=== PATIENT | male | born 1965 | race Caucasian/White ===

== ENCOUNTER 2018-08-07 11:38 | Inpatient (IN) | payer BC ==
[2018-08-07 12:26] LABS: ADD MAN DIFF? NO
[2018-08-07 12:29] LABS: BASOPHIL # 0.1 10^3/ul (0.0-0.1); BASOPHILS % 0.8 % (0.0-2.0); EOSINOPHILS # 0.1 10^3/ul (0.0-0.5); EOSINOPHILS % 1.4 % (0.0-7.0); HEMATOCRIT 42.9 % (42.0-52.0); HEMOGLOBIN 14.6 g/dl (14.0-18.0); LYMPHOCYTES # 1.8 10^3/ul (0.8-2.9); LYMPHOCYTES % 26.4 % (15.0-51.0); MEAN CORPUSCULAR HEMOGLOBIN 30.5 pg (29.0-33.0); MEAN CORPUSCULAR VOLUME 89.6 fl (82.0-101.0); MEAN PLATELET VOLUME 10.3 fl (7.4-10.4); MONOCYTE # 0.6 10^3/ul (0.3-0.9); MONOCYTES % 9.2 % (0.0-11.0); NEUTROPHIL # 4.1 10^3/ul (1.6-7.5); NEUTROPHILS % 61.7 % (39.0-77.0); PLATELET COUNT 206 10^3/UL (140-415); RED BLOOD COUNT 4.79 10^6/ul (4.70-6.10); RED CELL DISTRIBUTION WIDTH 12.2 % (11.5-14.5)
[2018-08-07 12:29] LABS: WHITE BLOOD COUNT 6.6 10^3/ul (4.8-10.8)
[2018-08-07 12:31] LABS: ADD UMIC NO; UR ASCORBIC ACID NEGATIVE (NEGATIVE); UR BILIRUBIN (Dip) NEGATIVE (NEGATIVE); UR BLOOD (Dip) NEGATIVE (NEGATIVE); UR CLARITY CLEAR (CLEAR); UR COLOR YELLOW (YELLOW); UR GLUCOSE (Dip) NEGATIVE (NEGATIVE); UR KETONES (Dip) NEGATIVE (NEGATIVE); UR LEUKOCYTE ESTERASE (Dip) NEGATIVE Leu/ul (NEGATIVE); UR NITRITE (Dip) NEGATIVE (NEGATIVE); UR TOTAL PROTEIN (Dip) NEGATIVE (NEGATIVE); UR UROBILINOGEN (Dip) NEGATIVE (NEGATIVE)
[2018-08-07] MEDS: ONDANSETRON 4 MG INJ IV (12:31)
[2018-08-07] MEDS: SOD CHLORIDE 0.9% 1,000 ML IV (12:31)
[2018-08-07] MEDS: KETOROLAC 15 MG INJ IV (12:51)
[2018-08-07 13:02] LABS: INR 0.93; PROTIME 12.6 Sec (11.9-14.9)
[2018-08-07 13:03] LABS: ALANINE AMINOTRANSFERASE 52 IU/L (13-69); ALBUMIN 4.4 g/dl (3.3-4.9); ALBUMIN/GLOBULIN RATIO 1.51; ALKALINE PHOSPHATASE 67 IU/L (42-121); ANION GAP 4 (5-13); ASPARTATE AMINO TRANSFERASE 33 IU/L (15-46); BILIRUBIN,INDIRECT 0.3 mg/dl (0-1.1); BILIRUBIN,TOTAL 0.3 mg/dl (0.2-1.3); BLOOD UREA NITROGEN 16 mg/dl (7-20); CALCIUM 9.6 mg/dl (8.4-10.2); CARBON DIOXIDE 28 mmol/L (21-31); CHLORIDE 108 mmol/L (97-110); CREATININE 0.87 mg/dl (0.61-1.24); Estimated GFR > 60 mL/min (>60); GLUCOSE 107 mg/dl (70-220); LIPASE 82 U/L (23-300); POTASSIUM 3.8 mmol/L (3.5-5.1); SODIUM 140 mmol/L (135-144); TOTAL PROTEIN 7.3 g/dl (6.1-8.1)
[2018-08-07] MEDS: SOD CHLORIDE 0.9% 100 ML (13:55)
[2018-08-07] MEDS: IOHEXOL 300MG/ML 150 ML BTL (13:55)
[2018-08-07] MEDS ORDERED: morphine 2 MG INJ (14:39)
[2018-08-07] MEDS: morphine 2 MG INJ IV ×2 (14:42→20:33)
[2018-08-07] MEDS ORDERED: ACETAMINOPHEN 325 MG TAB PO ×2 (16:00→19:00)
[2018-08-07] MEDS ORDERED: ONDANSETRON 4 MG INJ IV ×2 (16:00→19:00)
[2018-08-07] MEDS: PIPER-TAZO 3.375 GM IV (PMX) 100 ML IVPB (16:06)
[2018-08-07] MEDS: D5W-0.45 NACL + KCL 20 MEQ 1,000 ML IV (20:36)
[2018-08-08] MEDS: PIPER-TAZO 3.375 GM IV (PMX) 100 ML IVPB ×4 (00:33→17:42)
[2018-08-08] MEDS: PANTOPRAZOLE 40 MG INJ IV (05:56)
[2018-08-08 05:59] LABS: ADD MAN DIFF? NO
[2018-08-08 06:02] LABS: WHITE BLOOD COUNT 5.4 10^3/ul (4.8-10.8)
[2018-08-08 06:02] LABS: BASOPHIL # 0.1 10^3/ul (0.0-0.1); BASOPHILS % 0.9 % (0.0-2.0); EOSINOPHILS # 0.1 10^3/ul (0.0-0.5); EOSINOPHILS % 2.6 % (0.0-7.0); HEMATOCRIT 40.4 % (42.0-52.0); HEMOGLOBIN 13.7 g/dl (14.0-18.0); LYMPHOCYTES % 36.9 % (15.0-51.0); MEAN CORPUSCULAR HGB CONC 33.9 g/dl (32.0-37.0); MEAN CORPUSCULAR VOLUME 88.6 fl (82.0-101.0); MEAN PLATELET VOLUME 10.1 fl (7.4-10.4); MONOCYTE # 0.6 10^3/ul (0.3-0.9); MONOCYTES % 10.3 % (0.0-11.0); NEUTROPHIL # 2.7 10^3/ul (1.6-7.5); NEUTROPHILS % 48.9 % (39.0-77.0); PLATELET COUNT 195 10^3/UL (140-415); RED BLOOD COUNT 4.56 10^6/ul (4.70-6.10); RED CELL DISTRIBUTION WIDTH 12.5 % (11.5-14.5)
[2018-08-08 06:55] LABS: ALANINE AMINOTRANSFERASE 40 IU/L (13-69); ALBUMIN 3.9 g/dl (3.3-4.9); ALKALINE PHOSPHATASE 46 IU/L (42-121); AMYLASE 117 U/L (11-123); ANION GAP 10 (5-13); ASPARTATE AMINO TRANSFERASE 32 IU/L (15-46); BILIRUBIN,INDIRECT 0.9 mg/dl (0-1.1); BILIRUBIN,TOTAL 0.9 mg/dl (0.2-1.3); BLOOD UREA NITROGEN 13 mg/dl (7-20); CARBON DIOXIDE 29 mmol/L (21-31); CHLORIDE 103 mmol/L (97-110); CREATININE 0.95 mg/dl (0.61-1.24); Estimated GFR > 60 mL/min (>60); GLUCOSE 103 mg/dl (70-220); LIPASE 46 U/L (23-300); POTASSIUM 3.7 mmol/L (3.5-5.1); SODIUM 142 mmol/L (135-144); TOTAL PROTEIN 6.5 g/dl (6.1-8.1)
[2018-08-08] MEDS: D5W-0.45 NACL + KCL 20 MEQ 1,000 ML IV ×3 (09:01→22:34)
[2018-08-08] MEDS: morphine 2 MG INJ IV (15:39)
[2018-08-09] MEDS: PIPER-TAZO 3.375 GM IV (PMX) 100 ML IVPB ×4 (00:55→18:26)
[2018-08-09 05:49] LABS: ADD MAN DIFF? NO
[2018-08-09 05:50] LABS: BASOPHILS % 0.7 % (0.0-2.0); EOSINOPHILS # 0.2 10^3/ul (0.0-0.5); HEMATOCRIT 41.5 % (42.0-52.0); HEMOGLOBIN 14.1 g/dl (14.0-18.0); LYMPHOCYTES % 37.6 % (15.0-51.0); MEAN CORPUSCULAR HEMOGLOBIN 30.5 pg (29.0-33.0); MEAN CORPUSCULAR VOLUME 89.6 fl (82.0-101.0); MEAN PLATELET VOLUME 10.1 fl (7.4-10.4); MONOCYTE # 0.6 10^3/ul (0.3-0.9); MONOCYTES % 11.2 % (0.0-11.0); NEUTROPHIL # 2.5 10^3/ul (1.6-7.5); NEUTROPHILS % 47.3 % (39.0-77.0); PLATELET COUNT 196 10^3/UL (140-415); RED BLOOD COUNT 4.63 10^6/ul (4.70-6.10); RED CELL DISTRIBUTION WIDTH 12.5 % (11.5-14.5)
[2018-08-09 05:50] LABS: WHITE BLOOD COUNT 5.3 10^3/ul (4.8-10.8)
[2018-08-09] MEDS: PANTOPRAZOLE 40 MG INJ IV (05:59)
[2018-08-09 06:20] LABS: ANION GAP 9 (5-13); BLOOD UREA NITROGEN 11 mg/dl (7-20); CALCIUM 9.1 mg/dl (8.4-10.2); CARBON DIOXIDE 26 mmol/L (21-31); CHLORIDE 105 mmol/L (97-110); CREATININE 0.93 mg/dl (0.61-1.24); Estimated GFR > 60 mL/min (>60); GLUCOSE 109 mg/dl (70-220); POTASSIUM 3.8 mmol/L (3.5-5.1); SODIUM 140 mmol/L (135-144)
[2018-08-09] MEDS ORDERED: DESFLURANE 15 MIN (07:00)
[2018-08-09] MEDS ORDERED: EPHEDrine SULFATE 50 MG/5 ML SYG (07:00)
[2018-08-09] MEDS: D5W-0.45 NACL + KCL 20 MEQ 1,000 ML IV (10:05)
[2018-08-09] MEDS ORDERED: LIDOCAINE 2% (SDV) 5 ML INJ (10:57)
[2018-08-09] MEDS ORDERED: ROCURONIUM 50 MG INJ (10:57)
[2018-08-09] MEDS ORDERED: PROPOFOL 20 ML (10:57)
[2018-08-09] MEDS ORDERED: MIDAZOLAM 1 MG/ML 2 ML INJ (10:57)
[2018-08-09] MEDS ORDERED: FENTAnyl 50 MCG/ML VIAL (10:57)
[2018-08-09] MEDS ORDERED: ONDANSETRON 4 MG INJ (10:59)
[2018-08-09] MEDS ORDERED: DEXAMETHASONE 4 MG/ML 5 ML INJ (10:59)
[2018-08-09] MEDS ORDERED: METOCLOPRAMIDE 10 MG INJ (10:59)
[2018-08-09] MEDS ORDERED: NEOSTIGMINE 3 MG/3 ML SYRINGE (12:07)
[2018-08-09] MEDS ORDERED: GLYCOPYRROLATE 0.4 MG INJ (12:07)
[2018-08-09] MEDS ORDERED: PROCHLORPERAZINE 10 MG INJ IV (12:30)
[2018-08-09] MEDS ORDERED: HYDROmorphONE 1 MG/5 ML IV SYRINGE IV (12:30)
[2018-08-09] MEDS ORDERED: MIDAZOLAM 1 MG/ML 2 ML INJ IV (12:30)
[2018-08-09] MEDS ORDERED: OXYCODONE/ACETAMINOPHEN (5/325) TAB PO ×2 (12:30)
[2018-08-09] MEDS: BUPIVACAINE 0.25% (MPF) 30 ML INJ (12:38)
[2018-08-09] MEDS: ONDANSETRON 4 MG INJ IV (13:06)
[2018-08-09] MEDS: HYDROmorphONE 1 MG/5 ML IV SYRINGE IV ×2 (13:06→13:33)
[2018-08-09] MEDS: MEPERIDINE 25 MG INJ IV (13:06)
[2018-08-09] MEDS: HYDROCODONE/APAP (5/325) TAB GTB (19:50)
[2018-08-09] MEDS: CEFAZOLIN 2 GM/50 ML (PMX) 50 ML IVPB (21:56)
[2018-08-10] MEDS: HYDROCODONE/APAP (5/325) TAB GTB ×2 (00:01→08:47)
[2018-08-10] MEDS: PIPER-TAZO 3.375 GM IV (PMX) 100 ML IVPB ×3 (00:01→11:35)
[2018-08-10] MEDS: PANTOPRAZOLE 40 MG INJ IV (05:39)
[2018-08-10] MEDS: CEFAZOLIN 2 GM/50 ML (PMX) 50 ML IVPB ×2 (05:39→13:38)
[2018-08-10 06:21] LABS: ADD MAN DIFF? NO; BASOPHILS % 0.1 % (0.0-2.0); HEMATOCRIT 40.6 % (42.0-52.0); HEMOGLOBIN 13.9 g/dl (14.0-18.0); LYMPHOCYTES # 1.6 10^3/ul (0.8-2.9); LYMPHOCYTES % 17.3 % (15.0-51.0); MEAN CORPUSCULAR HEMOGLOBIN 30.2 pg (29.0-33.0); MEAN CORPUSCULAR HGB CONC 34.2 g/dl (32.0-37.0); MEAN CORPUSCULAR VOLUME 88.3 fl (82.0-101.0); MEAN PLATELET VOLUME 10.1 fl (7.4-10.4); MONOCYTE # 0.7 10^3/ul (0.3-0.9); MONOCYTES % 7.5 % (0.0-11.0); NEUTROPHILS % 74.8 % (39.0-77.0); PLATELET COUNT 217 10^3/UL (140-415); RED CELL DISTRIBUTION WIDTH 12.4 % (11.5-14.5)
[2018-08-10 06:21] LABS: WHITE BLOOD COUNT 9.4 10^3/ul (4.8-10.8)
[2018-08-10 06:58] LABS: ANION GAP 10 (5-13); BLOOD UREA NITROGEN 13 mg/dl (7-20); CALCIUM 9.8 mg/dl (8.4-10.2); CARBON DIOXIDE 26 mmol/L (21-31); CHLORIDE 103 mmol/L (97-110); CREATININE 0.91 mg/dl (0.61-1.24); Estimated GFR > 60 mL/min (>60); GLUCOSE 125 mg/dl (70-220); SODIUM 139 mmol/L (135-144)
[2018-08-10] MEDS: DOCUSATE SODIUM 100 MG CAP PO ×2 (12:19→20:54)
[2018-08-11 05:28] LABS: ADD MAN DIFF? NO
[2018-08-11 05:31] LABS: BASOPHIL # 0.1 10^3/ul (0.0-0.1); BASOPHILS % 0.4 % (0.0-2.0); EOSINOPHILS # 0.1 10^3/ul (0.0-0.5); EOSINOPHILS % 0.6 % (0.0-7.0); HEMATOCRIT 43.4 % (42.0-52.0); HEMOGLOBIN 14.5 g/dl (14.0-18.0); LYMPHOCYTES # 3.5 10^3/ul (0.8-2.9); LYMPHOCYTES % 28.6 % (15.0-51.0); MEAN CORPUSCULAR HEMOGLOBIN 30.2 pg (29.0-33.0); MEAN CORPUSCULAR HGB CONC 33.4 g/dl (32.0-37.0); MEAN CORPUSCULAR VOLUME 90.4 fl (82.0-101.0); MONOCYTE # 1.1 10^3/ul (0.3-0.9); MONOCYTES % 8.8 % (0.0-11.0); NEUTROPHIL # 7.4 10^3/ul (1.6-7.5); NEUTROPHILS % 61.3 % (39.0-77.0); PLATELET COUNT 227 10^3/UL (140-415); RED CELL DISTRIBUTION WIDTH 12.5 % (11.5-14.5)
[2018-08-11 05:31] LABS: WHITE BLOOD COUNT 12.2 10^3/ul (4.8-10.8)
[2018-08-11 05:57] LABS: ANION GAP 10 (5-13); BLOOD UREA NITROGEN 18 mg/dl (7-20); CALCIUM 9.5 mg/dl (8.4-10.2); CARBON DIOXIDE 27 mmol/L (21-31); CHLORIDE 103 mmol/L (97-110); Estimated GFR > 60 mL/min (>60); GLUCOSE 102 mg/dl (70-220); SODIUM 140 mmol/L (135-144)
[2018-08-11] MEDS: PANTOPRAZOLE 40 MG INJ IV (06:38)
[2018-08-11] MEDS: DOCUSATE SODIUM 100 MG CAP PO (08:41)
== END 2018-08-11 15:15 | disposition home or self-care (01) | DRG 419 ==
LOC: E/R 11:38 → PP2 15:37
PROC: 0FT44ZZ Resection of Gallbladder, Percutaneous Endoscopic Approach (ICD-10-PCS; principal; 2018-08-09 11:50)
DX: K80.00 Calculus of gallbladder with acute cholecystitis without obstruction (principal); D72.829 Elevated white blood cell count, unspecified
CPT/HCPCS: 36415; 71045; 74177; 76705; 80048; 80053; 81003; 82150; 83690; 85025; 85610; 86850; 86900; 86901; 88304; 93005; 96374; 96375; 99285-25

== ENCOUNTER 2018-09-04 10:01 | Day surgery (SDC) | payer BC ==
[2018-09-04] MEDS ORDERED: MIDAZOLAM 1 MG/ML 2 ML INJ ×2 (12:25)
[2018-09-04] MEDS ORDERED: FENTAnyl 50 MCG/ML VIAL (12:26)
== END 2018-09-04 15:54 | disposition home or self-care (01) ==
LOC: GIL 10:01
DX: Z12.11 Encounter for screening for malignant neoplasm of colon (principal); K64.8 Other hemorrhoids; D12.6 Benign neoplasm of colon, unspecified
CPT/HCPCS: 45380; 88305